=== PATIENT | female | born 1975 | race Caucasian/White ===

== ENCOUNTER 2016-08-08 12:40 | Emergency (ER) | payer OTHER ==
[~2016-08-08 12:40] MED LIST: CELEXA40 MG PO; CLONAZEPAM1 MG PO; HCTZ25 MG PO; HYDROCODON-ACE1 EAC6 PO; HYDROXYZINE HCL25 MG PO; NEURONTIN600 MG PO; NICODERM 21MG PA1 EA TD; PRILOSEC20 MG PO; PRILOSEC40 MG PO; ZESTRIL20 M1 PO; ZOCOR20 MG PO
== END 2016-08-08 15:01 | disposition home or self-care (01) ==
LOC: ER 12:40
DX: M79.1 Myalgia (principal); G54.2 Cervical root disorders, not elsewhere classified; M54.2 Cervicalgia; X50.0XXA Overexertion from strenuous movement or load, initial encounter; F17.210 Nicotine dependence, cigarettes, uncomplicated; Z79.1 Long term (current) use of non-steroidal anti-inflammatories (NSAID); Z79.899 Other long term (current) drug therapy
CPT/HCPCS: 72040; 73030; 81025; 96372; 99070; 99283-25

== ENCOUNTER 2016-08-18 20:59 | Observation (INO) | payer OTHER ==
[~2016-08-18] VITALS: Ht 160 cm; Wt 101.0 kg
[2016-08-18 21:19] LABS: BASO # 0.1 10_X3_uL (0.0-0.1); BASO % 0.3 % (0.1-1.2); EOS # 0.2 10_X3_uL (0.0-0.4); EOS % 0.9 % (0.7-5.8); GRAN # 10.8 10_X3_uL (1.6-6.1); GRAN % 60.9 % (34.0-71.1); HEMATOCRIT 45.4 % (34-45); HEMOGLOBIN 14.9 g/dL (11.2-15.7); LYMPH # 5.3 10_X3_uL (1.2-3.7); LYMPH % 29.7 % (19.3-51.7); MEAN CORPUSCULAR HEMOGLOBIN 30.5 pg (27.0-33.0); MEAN CORPUSCULAR HGB CONC 32.8 g/dL (32.0-36.0); MEAN PLATELET VOLUME 10.4 fl (7.5-11.5); MONO # 1.5 10_X3_uL (0.2-0.9); MONO % 8.2 % (4.7-12.5); PLATELET COUNT 341 x10_3/uL (182-369); RED BLOOD COUNT 4.88 x10_6/uL (3.9-5.2); RED CELL DISTRIBUTION WIDTH 15.4 % (11.7-14.4); WHITE BLOOD COUNT 17.7 x10_3/uL (4.0-10.0)
[2016-08-18 21:32] LABS: ALBUMIN 4.2 gm/dL (3.4-5.0); ALKALINE PHOSPHATASE 65 U/L (50-136); ALT/SGPT 64 U/L (3.5-33.9); AST/SGOT 57 U/L (7.04-26.96); BILIRUBIN,TOTAL 0.24 mg/dL (0.0-1.0); BLOOD UREA NITROGEN 9 mg/dL (7-18); CALCIUM 9.1 mg/dL (8.7-10.7); CARBON DIOXIDE 21 mmol/L (21-32); CREATINE KINASE 43 U/L (21-215); CREATININE 0.8 mg/dL (0.6-1.3); GLUCOSE,RANDOM 115 mg/dL (70-99); POTASSIUM 3.7 mmol/L (3.5-5.1); SODIUM 136 mmol/L (136-145); TOTAL PROTEIN 7.3 gm/dL (6.4-8.2)
[2016-08-18 22:10] LABS: URINE BILIRUBIN NEGATIVE (NEGATIVE); URINE BLOOD TRACE (NEGATIVE); URINE GLUCOSE (UA) NORMAL (NORMAL); URINE KETONE NEGATIVE (NEGATIVE); URINE LEUKOCYTE ESTERASE TRACE (NEGATIVE); URINE NITRATE NEGATIVE (NEGATIVE); URINE PROTEIN TRACE (NEGATIVE)
[2016-08-18 22:22] LABS: URINE RBC 0-5 /[HPF] (0-2); URINE SQUAMOUS EPITHELIAL CELL >20 /[HPF] (NONE SEEN); URINE WBC 0-5 /[HPF] (0-5)
[2016-08-19 03:27] LABS: PARTIAL THROMBOPLASTIN TIME 24.7 SECONDS (21.3-29.3); PROTHROMBIN TIME (PATIENT) 10.4 SECONDS (9.9-11.1)
[2016-08-19 03:35] LABS: CKMB < 1.0 ng/ml (0.0-5.0); TROP-I < 0.30 NG/ML (0.00-0.30)
[2016-08-19 09:56] LABS: CKMB < 1.0 ng/ml (0.0-5.0); TROP-I < 0.30 NG/ML (0.00-0.30)
[2016-08-19 15:33] LABS: CKMB < 1.0 ng/ml (0.0-5.0); TROP-I < 0.30 NG/ML (0.00-0.30)
[2016-08-20 09:20] LABS: HEMATOCRIT 41.7 % (34-45); HEMOGLOBIN 13.7 g/dL (11.2-15.7); MEAN CORPUSCULAR HEMOGLOBIN 30.9 pg (27.0-33.0); MEAN CORPUSCULAR HGB CONC 32.9 g/dL (32.0-36.0); MEAN CORPUSCULAR VOLUME 93.9 fL (79-95); MEAN PLATELET VOLUME 10.6 fl (7.5-11.5); RED BLOOD COUNT 4.44 x10_6/uL (3.9-5.2); RED CELL DISTRIBUTION WIDTH 15.7 % (11.7-14.4)
[2016-08-20 09:27] LABS: BLOOD UREA NITROGEN 9 mg/dL (7-18); CARBON DIOXIDE 20 mmol/L (21-32); CREATININE 0.5 mg/dL (0.6-1.3); GLUCOSE,RANDOM 127 mg/dL (70-99); POTASSIUM 4.4 mmol/L (3.5-5.1); SODIUM 136 mmol/L (136-145)
== END 2016-08-20 11:50 | disposition home or self-care (01) ==
LOC: ER 20:59 → MS 08-19 00:44
PROVIDERS: Emergency Medicine; Family Medicine; ADMIT Family Medicine
PROC: 3E0234Z Introduction of Serum, Toxoid and Vaccine into Muscle, Percutaneous Approach (ICD-10-PCS; principal; 2016-08-20)
DX: R07.9 Chest pain, unspecified (principal); R11.0 Nausea; I10 Essential (primary) hypertension; Z98.890 Other specified postprocedural states; F17.210 Nicotine dependence, cigarettes, uncomplicated; J44.9 Chronic obstructive pulmonary disease, unspecified; D72.829 Elevated white blood cell count, unspecified; R00.0 Tachycardia, unspecified; B18.2 Chronic viral hepatitis C; R20.0 Anesthesia of skin; Z88.0 Allergy status to penicillin; Z79.899 Other long term (current) drug therapy; Z79.1 Long term (current) use of non-steroidal anti-inflammatories (NSAID); Z23 Encounter for immunization
CPT/HCPCS: 36415; 71010; 71020; 71250; 80048; 80053; 80061; 81001; 82550; 82553; 85025; 85610; 85730; 90653; 93005; 93041; 96361; 96372; 96374; 96375; 96376; 99070; 99285-25; G0008; G0378

== ENCOUNTER 2016-09-08 23:33 | Observation (INO) | payer OTHER | END 2016-09-10 14:50 | disposition home or self-care (01) | LOC: ER 23:33 → MS 09-09 04:02 | PROVIDERS: ADMIT Family Medicine | DX: R07.9 Chest pain, unspecified (principal); I10 Essential (primary) hypertension; Z86.19 Personal history of other infectious and parasitic diseases; Z98.890 Other specified postprocedural states; F17.210 Nicotine dependence, cigarettes, uncomplicated; R05 Cough; R82.0 Chyluria; Z79.899 Other long term (current) drug therapy; J44.9 Chronic obstructive pulmonary disease, unspecified; M75.52 Bursitis of left shoulder; Z88.0 Allergy status to penicillin; Z91.041 Radiographic dye allergy status ==

== ENCOUNTER 2016-11-04 05:32 | Emergency (ER) | payer OTHER ==
[2016-11-04 06:21] LABS: BASO # 0.1 10_X3_uL (0.0-0.1); BASO % 0.3 % (0.1-1.2); EOS # 0.1 10_X3_uL (0.0-0.4); EOS % 0.7 % (0.7-5.8); GRAN % 68.5 % (34.0-71.1); HEMATOCRIT 42.3 % (34-45); MEAN CORPUSCULAR HEMOGLOBIN 30.9 pg (27.0-33.0); MEAN CORPUSCULAR HGB CONC 33.1 g/dL (32.0-36.0); MEAN CORPUSCULAR VOLUME 93.4 fL (79-95); MEAN PLATELET VOLUME 10.9 fl (7.5-11.5); MONO # 0.9 10_X3_uL (0.2-0.9); MONO % 5.5 % (4.7-12.5); PLATELET COUNT 331 x10_3/uL (182-369); RED BLOOD COUNT 4.53 x10_6/uL (3.9-5.2); RED CELL DISTRIBUTION WIDTH 14.9 % (11.7-14.4); WHITE BLOOD COUNT 16.1 x10_3/uL (4.0-10.0)
[2016-11-04 06:38] LABS: ALBUMIN 4.2 gm/dL (3.4-5.0); ALKALINE PHOSPHATASE 60 U/L (50-136); ALT/SGPT 37 U/L (3.5-33.9); AST/SGOT 32 U/L (7.04-26.96); BILIRUBIN,TOTAL 0.21 mg/dL (0.0-1.0); BLOOD UREA NITROGEN 10 mg/dL (7-18); CALCIUM 9.6 mg/dL (8.7-10.7); CARBON DIOXIDE 24 mmol/L (21-32); CREATINE KINASE 123 U/L (21-215); CREATININE 0.7 mg/dL (0.6-1.3); GLUCOSE,RANDOM 125 mg/dL (70-99); SODIUM 141 mmol/L (136-145); TOTAL PROTEIN 7.1 gm/dL (6.4-8.2)
== END 2016-11-04 07:55 | disposition home or self-care (01) ==
LOC: ER 05:32
PROVIDERS: Emergency Medicine
DX: R07.89 Other chest pain (principal); J06.9 Acute upper respiratory infection, unspecified; J32.9 Chronic sinusitis, unspecified; I10 Essential (primary) hypertension; Z86.19 Personal history of other infectious and parasitic diseases; R00.0 Tachycardia, unspecified; Z98.890 Other specified postprocedural states; F17.210 Nicotine dependence, cigarettes, uncomplicated; Z88.0 Allergy status to penicillin; Z79.899 Other long term (current) drug therapy
CPT/HCPCS: 36415; 71010; 80053; 82550; 82553; 85025; 93005; 96372; 99285-25

== ENCOUNTER 2016-11-24 04:03 | Emergency (ER) | payer OTHER ==
[2016-11-24 04:17] LABS: URINE BILIRUBIN 1+ (NEGATIVE); URINE BLOOD 1+ (NEGATIVE); URINE GLUCOSE (UA) NORMAL (NORMAL); URINE KETONE TRACE (NEGATIVE); URINE LEUKOCYTE ESTERASE TRACE (NEGATIVE); URINE NITRATE NEGATIVE (NEGATIVE); URINE PROTEIN 1+ (NEGATIVE)
[2016-11-24 04:25] LABS: URINE MUCUS 1+; URINE SQUAMOUS EPITHELIAL CELL 0-10 /[HPF] (NONE SEEN); URINE WBC 0-5 /[HPF] (0-5)
[2016-11-24 13:34] LABS: HEMOGLOBIN 13.5 g/dL (11.2-15.7); MEAN CORPUSCULAR HEMOGLOBIN 30.3 pg (27.0-33.0); MEAN CORPUSCULAR HGB CONC 32.9 g/dL (32.0-36.0); MEAN CORPUSCULAR VOLUME 91.9 fL (79-95); MEAN PLATELET VOLUME 10.4 fl (7.5-11.5); RED BLOOD COUNT 4.46 x10_6/uL (3.9-5.2); RED CELL DISTRIBUTION WIDTH 14.2 % (11.7-14.4)
[2016-11-24 13:50] LABS: AHDL CHOLESTEROL 33 mg/dL (>40); ALBUMIN 4.4 gm/dL (3.4-5.0); ALKALINE PHOSPHATASE 63 U/L (50-136); ALT/SGPT 42 U/L (3.5-33.9); AST/SGOT 37 U/L (7.04-26.96); BILIRUBIN,TOTAL 0.39 mg/dL (0.0-1.0); CHOLESTEROL 201 mg/dL (0-200); LDL CHOLESTEROL 139 mg/dL (0-99); TOTAL PROTEIN 7.2 gm/dL (6.4-8.2); TRIGLYCERIDES 186 mg/dL (30-200)
[2016-11-24 14:02] LABS: BILIRUBIN,DIRECT < 0.20 mg/dL (0.0-0.30)
[2016-11-26 11:08] LABS: HCV Reactive (NR)
== END 2016-11-24 06:05 ==
LOC: ER 04:03 → LAB 04:03 → ER 06:05 → EDSTATUS 13:08 → LAB 13:09 → EDSTATUS 11-25 03:09
PROVIDERS: Family Medicine; General Practice
DX: N20.0 Calculus of kidney (principal); R31.9 Hematuria, unspecified; R10.9 Unspecified abdominal pain; B19.20 Unspecified viral hepatitis C without hepatic coma; Z79.899 Other long term (current) drug therapy; Z79.1 Long term (current) use of non-steroidal anti-inflammatories (NSAID); Z88.0 Allergy status to penicillin; F17.210 Nicotine dependence, cigarettes, uncomplicated
CPT/HCPCS: 36415; 74150; 80061; 80074; 80076; 81001; 81025; 86704; 86706; 87340; 87521; 87901; 96372; 99070; 99284-25